=== PATIENT | female | born 1990 | race Caucasian/White ===

== ENCOUNTER 2019-04-03 07:55 | Day surgery (SDC) | payer MEDICAID ==
[2019-04-01 10:07] LABS: HEMATOCRIT 35.6 % (36.0-48.0); HEMOGLOBIN 12.2 g/dL (12-16); LYMPHOCYTES 27.7 % (15-50); MCH 28.2 pg (26.0-34.0); MCHC 34.3 g/dL (31.0-37.0); MCV 82.4 fL (80.0-100.0); MEAN PLATELET VOLUME 8.4 fL (7.4-10.4); NEUTROPHILS 64.2 % (40-80); PLATELET COUNT 363 10x3/uL (130-400); RBC 4.32 10x6/uL (4.00-5.40); RDW 12.9 % (11.5-14.5); WBC 8.1 10x3/uL (4.8-10.8)
[~2019-04-03] VITALS: Ht 160 cm; Wt 119.3 kg
[~2019-04-03 07:55] MED LIST: ADIPEX-P37.5 M1 PO; BUPROPION XL150 MG PO
[2019-04-03 09:04] VITALS: BP 119/75; Ht 160 cm; Wt 119.3 kg
[2019-04-03 09:09] LABS: HCG URINE NEGATIVE (NEGATIVE)
--- NOTE | 2019-04-03 18:10 | NUR ---
1800 INSTRUCTIONS GIVEN TO PT AND IVF AND NAUSEA MEDICATION GIVEN TO PT FOR MILD NAUSEA. SMALL AMT OF VAGINAL BLEEDING NOTED. PT VOIDED ADEQUET AMT
--- NOTE | 2019-04-03 18:20 | NUR ---
1800 PAIN LEVEL 4/10 NAUSEA RELIEVED
--- NOTE | 2019-04-26 12:26 | OP ---
PATIENT NAME: CHASITY ORTIZ MEDICAL RECORD: [id number] :90 LOCATION:[facility] ADMISSION DATE: SURGEON: SILVIANO ARMENTA DO DATE OF OPERATION: 04/03/2019 PREOPERATIVE DIAGNOSES: Multiparity, desires for permanent sterilization. POSTOPERATIVE DIAGNOSES: Multiparity, desires for permanent sterilization, intra-abdominal adhesions. PRIMARY SURGEON: Silviano Armenta DO DOLLY OPERATOR SURGEON: Ken Alejo MD ANESTHESIA: Linda David CRNA PROCEDURE: Bilateral tubal ligation with Falope rings. FINDINGS: Normal-appearing external genitalia. Normal-appearing vaginal vault. Normal-appearing cervix. Uterus sounded to 9 cm. Mild intra-abdominal adhesions. Adhesions of omentum to anterior abdominal wall. Adhesions of bladder to anterior uterus. Normal-appearing uterus, bilateral fallopian tubes, and bilateral ovaries. SPECIMENS: Not applicable. ESTIMATED BLOOD LOSS: 5 cc. IV FLUIDS: 1200 cc. URINE OUTPUT: 200 cc clear urine. COMPLICATIONS: None. CONDITION: Stable. DESCRIPTION OF PROCEDURE: The risks, benefits, alternatives, and indications of the procedure were discussed with the patient. She voiced understanding of the procedure and signed a consent. She understood that tubal ligation is a permanent procedure and expressed desire for permanent sterility. She was taken to the OR, where general anesthesia was administered and found to be adequate. She was placed in the dorsal lithotomy position. She was prepped and draped in a normal sterile fashion. A speculum was placed in the posterior aspect of the vagina. Single-tooth tenaculum was used to grasp the anterior lip of the cervix. The uterus was sounded to 9 cm. The cervix was dilated to accommodate the HUMI manipulator. The HUMI manipulator was placed and all other instruments were removed from the vagina. Attention was then turned to the abdomen. Gloves were changed. Due to suspicion of adhesions, a decision was made to enter at Rodrigues's point. OG tube was placed. A 5-mm incision was created with a scalpel. An attempt was made to enter the abdomen with the Veress needle; however, unable to enter the abdomen through that incision. Marcaine was placed in the umbilicus and a 5-mm incision was made in the umbilical fold. A 5-mm port was placed under direct laparoscopic visualization. Pneumoperitoneum was achieved to 15 mmHg. The uterus was elevated out of the pelvis. The patient was placed in Trendelenburg position. There were mild intra-abdominal adhesions OPERATIVE REPORT [id number] YOUNG,CHASITY CORNELIUS and adhesions of the bladder to the anterior portion of the uterus; however, the uterus, tubes, and ovaries were noted to be normal. The right fallopian tube was elevated with the Falope ring applicator and the Falope ring was placed with good blanching noted. The left fallopian tube was elevated, and the left Falope ring was placed and good blanching was noted on that side as well. Hemostasis was adequate. Pneumoperitoneum was released from the abdomen. The ports were removed, and the port sites were closed with 3-0 Monocryl and Dermabond. The HUMI manipulator was removed and good hemostasis in the vagina was noted. All needle, lap, sponge, and instrument counts were correct times 2. The patient tolerated the procedure well. She was awakened and taken to the recovery room in stable condition. TRANSINT:[id number] Voice Confirmation ID: [id number] DOCUMENT ID: [id number] SILVIANO ARMENTA DO at 1226 CC: [id number] DICTATION DATE: 04/03/19 1549 FOOD SERVICE CASHIER: 04/04/19 0041 [facility] 04/03/19 [facility] [address] [place] [address]
== END 2019-04-03 18:55 | disposition home or self-care (01) ==
LOC: D.OPS 07:55 → D.PAN 09:00 → D.OPS 09:00
PROVIDERS: ATTEND Student in an Organized Health Care Education/Training Program
DX: Z64.1 Problems related to multiparity (principal); Z30.2 Encounter for sterilization; Z30.09 Encounter for other general counseling and advice on contraception